=== PATIENT | male | born 2005 | race Caucasian/White ===

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

== ENCOUNTER 2024-01-06 22:33 | Emergency (ER) | payer OTHER ==
[~2024-01-06] VITALS: Ht 170.2 cm; Wt 76.3 kg
[2024-01-06] MEDS: IBUPROFEN 600MG TAB PO ONE (23:36)
[2024-01-07] MEDS ORDERED: IBUP-1022 PO (00:51)
[2024-01-07 01:01] VITALS: BP 112/66; TEMP 98.4; O2SAT 100
== END 2024-01-07 01:38 | disposition home or self-care (01) ==
LOC: M ED 22:33
DX: S93.602A Unspecified sprain of left foot, initial encounter (principal); Y92.830 Public park as the place of occurrence of the external cause; Y93.9 Activity, unspecified; Y99.9 Unspecified external cause status; Z79.1 Long term (current) use of non-steroidal anti-inflammatories (NSAID)

== ENCOUNTER 2024-07-28 20:22 | Emergency (ER) | payer OTHER ==
[~2024-07-28] VITALS: Ht 175.3 cm; Wt 75.6 kg
[~2024-07-28 20:22] MED LIST: IBUP-1022 PO
[2024-07-28 21:43] LABS: BASO % 0.4 % (0.0-1.0); EOS # 0.1 10^3/uL (0.0-0.5); HEMATOCRIT 45.1 % (42.0-52.0); HEMOGLOBIN 15.2 g/dl (13.5-17.5); LYMPH # 1.1 10^3/uL (1.5-5.0); LYMPH % 15.2 % (24.0-44.0); MEAN CORPUSCULAR HEMOGLOBIN 25.7 pg (27.0-33.0); MEAN CORPUSCULAR HGB CONC 33.7 g/dl (32.0-36.5); MEAN CORPUSCULAR VOLUME 76.2 fl (80.0-96.0); MONO # 0.9 10^3/uL (0.0-0.8); MONO % 12.8 % (2.0-8.0); NEUTROPHILS # 4.9 10^3/uL (1.5-8.5); NEUTROPHILS % 69.3 % (36.0-66.0); PLATELET COUNT, AUTOMATED 302 10^3/uL (150-450); RED BLOOD COUNT 5.92 10^6/uL (4.30-6.10); WHITE BLOOD COUNT 7.1 10^3/uL (4.0-10.0)
[2024-07-28 22:07] LABS: LIPASE 28 U/L (12-53)
[2024-07-28 22:09] LABS: ALBUMIN 4.3 G/DL (3.2-5.2); ALKALINE PHOSPHATASE 53 U/L (40-129); ALT/SGPT 13 U/L (7.0-40); AST/SGOT 12 U/L (<34); BILIRUBIN,DIRECT 0.2 MG/DL (<0.4); BILIRUBIN,TOTAL 0.4 MG/DL (0.3-1.2); BLOOD UREA NITROGEN 15 MG/DL (9-23); CALCIUM LEVEL 9.8 MG/DL (8.5-10.1); CARBON DIOXIDE LEVEL 23 MMOL/L (20-31); CHLORIDE LEVEL 100 MMOL/L (98-107); CREATININE FOR GFR 0.96 MG/DL (0.70-1.30); GLUCOSE, FASTING 82 MG/DL (60-100); POTASSIUM SERUM 3.9 MMOL/L (3.5-5.1); SODIUM LEVEL 139 MMOL/L (136-145); TOTAL PROTEIN 8.1 G/DL (5.7-8.2)
[2024-07-29 00:38] VITALS: BP 115/72; TEMP 98.9; O2SAT 98
[2024-07-29] MEDS ORDERED: ONDA-282 PO (01:01)
[2024-07-29] MEDS: LOPERAMIDE 2 MG CAPLET PO ONE (01:06)
[2024-07-29] MEDS: ONDANSETRON 4MG ORAL DISINTEGRATING TAB PO ONE (01:06)
== END 2024-07-29 01:08 | disposition home or self-care (01) ==
LOC: M ED 20:22 → EDBD 20:22 → M ED 07-29 01:08
DX: R11.0 Nausea (principal); R19.7 Diarrhea, unspecified; B34.0 Adenovirus infection, unspecified; Z79.1 Long term (current) use of non-steroidal anti-inflammatories (NSAID); Z79.899 Other long term (current) drug therapy

== ENCOUNTER 2025-02-15 14:01 | Emergency (ER) | payer OTHER ==
[~2025-02-15 14:01] MED LIST changes: +ONDA-282 PO
[2025-02-15 14:58] LABS: BASO # 0.1 10^3/uL (0.0-0.2); BASO % 0.6 % (0.0-1.0); EOS # 0.2 10^3/uL (0.0-0.5); EOS % 2.2 % (0.0-3.0); LYMPH # 2.5 10^3/uL (1.5-5.0); LYMPH % 28.7 % (24.0-44.0); MONO # 0.8 10^3/uL (0.0-0.8); MONO % 9.0 % (2.0-8.0); NEUTROPHILS # 5.2 10^3/uL (1.5-8.5); NEUTROPHILS % 59.2 % (36.0-66.0); PLATELET COUNT, AUTOMATED 371 10^3/uL (150-450)
[2025-02-15 15:00] LABS: CALCIUM LEVEL 9.0 MG/DL (8.5-10.1); CARBON DIOXIDE LEVEL 25 MMOL/L (20-31); CHLORIDE LEVEL 105 MMOL/L (98-107); CREATININE FOR GFR 0.88 MG/DL (0.70-1.30); GLOMERULAR FILTRATION RATE > 90.0 (>60); POTASSIUM SERUM 3.7 MMOL/L (3.5-5.1); SODIUM LEVEL 140 MMOL/L (136-145)
[2025-02-15 16:20] VITALS: TEMP 98.1
[2025-02-15] MEDS: TETANUS/DIPHTH/ACEL. PERTUSSIS 0.5 ML SYR IM.IMMUN ONE (16:25)
[2025-02-15 16:37] VITALS: BP 121/61; O2SAT 99
== END 2025-02-15 16:56 | disposition home or self-care (01) ==
LOC: EDBD 14:01 → M ED 14:01
DX: S01.112A Laceration without foreign body of left eyelid and periocular area, initial encounter (principal); Y92.019 Unspecified place in single-family (private) house as the place of occurrence of the external cause; Y93.9 Activity, unspecified; Y99.9 Unspecified external cause status; W10.9XXA Fall (on) (from) unspecified stairs and steps, initial encounter; F12.10 Cannabis abuse, uncomplicated; Z23 Encounter for immunization; Z79.1 Long term (current) use of non-steroidal anti-inflammatories (NSAID); Z79.899 Other long term (current) drug therapy

== ENCOUNTER 2025-02-22 12:03 | Emergency (ER) | payer OTHER ==
[~2025-02-22] VITALS: Ht 175.3 cm; Wt 80.2 kg
[2025-02-22 16:38] VITALS: BP 113/74; TEMP 95; O2SAT 100
== END 2025-02-22 16:40 | disposition home or self-care (01) ==
LOC: M ED 12:03
DX: Z48.02 Encounter for removal of sutures (principal)

== ENCOUNTER 2025-06-14 20:48 | Emergency (ER) | payer OTHER ==
[~2025-06-14] VITALS: Ht 180.3 cm; Wt 86.3 kg
[~2025-06-14 20:48] MED LIST changes: -IBUP-1022 PO; +IBUP600T42 PO
[2025-06-14 20:55] VITALS: TEMP 98.7
[2025-06-14 21:28] LABS: BASO # 0.1 10^3/uL (0.0-0.2); BASO % 0.6 % (0.0-1.0); EOS # 0.4 10^3/uL (0.0-0.5); EOS % 4.2 % (0.0-3.0); LYMPH # 2.8 10^3/uL (1.5-5.0); LYMPH % 32.2 % (24.0-44.0); MONO # 0.7 10^3/uL (0.0-0.8); MONO % 8.0 % (2.0-8.0); NEUTROPHILS # 4.7 10^3/uL (1.5-8.5); NEUTROPHILS % 54.8 % (36.0-66.0); PLATELET COUNT, AUTOMATED 360 10^3/uL (150-450)
[2025-06-14 21:54] LABS: CK-MB VALUE MASS 1.2 NG/ML (<3.6)
[2025-06-14 22:03] LABS: CALCIUM LEVEL 8.6 MG/DL (8.5-10.1); CARBON DIOXIDE LEVEL 25 MMOL/L (20-31); CHLORIDE LEVEL 106 MMOL/L (98-107); CREATININE FOR GFR 0.74 MG/DL (0.70-1.30); GLOMERULAR FILTRATION RATE > 90.0 (>60); MAGNESIUM LEVEL 2.0 MG/DL (1.8-2.4); POTASSIUM SERUM 3.9 MMOL/L (3.5-5.1); SODIUM LEVEL 141 MMOL/L (136-145)
[2025-06-14] MEDS ORDERED: HOME MED LIST COMPLETE! XX SCH (22:05)
[2025-06-14 22:07] LABS: CPK CREATINE PHOSPHOKINASE 125 U/L (46-171); MB/CK RELATIVE INDEX 0.96 (< OR =4)
[2025-06-14] MEDS: NS (Normal Saline) 0.9% 1,000 ML IV ONE (22:36)
[2025-06-14 23:15] LABS: CK-MB VALUE MASS 1.1 NG/ML (<3.6)
[2025-06-14 23:16] LABS: CPK CREATINE PHOSPHOKINASE 120 U/L (46-171); MB/CK RELATIVE INDEX 0.91 (< OR =4)
[2025-06-15 01:15] VITALS: BP 120/65; O2SAT 98
== END 2025-06-15 01:25 | disposition home or self-care (01) ==
LOC: M ED 20:48 → EDBD 20:48 → M ED 06-15 01:25
DX: R07.89 Other chest pain (principal); J45.909 Unspecified asthma, uncomplicated; F17.210 Nicotine dependence, cigarettes, uncomplicated; F32.A Depression, unspecified